=== PATIENT | female | born 1990 | race Caucasian/White ===

== ENCOUNTER → 2018-07-23 16:30 | Outpatient (CLI) | payer OTHER, SELFPAY ==
[2018-07-24 12:58] LABS: Chlamydia Trachomatis by PCR Negative (Negative)
[2018-07-24 12:59] LABS: Neisserai gonorrhoeae by PCR Negative (Negative); Probe Check PASS; Sample Adequacy Control PASS; Specimen Processing Control PASS
[2018-07-27 17:24] LABS: HPV Reflexed? NOT INDICATED
== END ==
PROVIDERS: Visit Provider Obstetrics & Gynecology
DX: Z12.4 Encounter for screening for malignant neoplasm of cervix (principal)
CPT/HCPCS: 87491; 87591; 87624; 88175; G0145

== ENCOUNTER 2021-04-29 08:55 | Day surgery (SDC) | payer OTHER, SELFPAY ==
--- NOTE | 2021-04-27 13:08 | EKG12_ITS ---
Test Reason : PRE-OP Blood Pressure : / mmHG Vent. Rate : 104 BPM Atrial Rate : 104 BPM P-R Int : 130 ms QRS Dur : 072 ms QT Int : 350 ms P-R-T Axes : 009 062 029 degrees QTc Int : 460 ms Sinus tachycardia Otherwise normal ECG Confirmed by SHAISTA APARICIO, MER ([id number]), editor greeting card LEANNA HICKS ([id number]) on 04/28/2021 9:38:03 AM Referred By: Louis Leal Confirmed By:MER NOONAN MD
[2021-04-29] VITALS (7 sets, daily range): BP systolic 95–110; BP diastolic 56–70; PULSE 55–76; RESP 16–18; TEMP 36.1–36.6; O2SAT 97–100; BMI 34.1
[2021-04-29 09:29] LABS: Internal QC Validated? YES +Cl - CLEAR BKGD; Pregnancy, Urine Negative Negative
[2021-04-29] MEDS: Lactated Ringers 1,000 ML 15 ML IV (09:37)
--- NOTE | 2021-04-29 09:54 | PCM.HP.BLA ---
History and Physical Date of Admission: 04/29/21 Intake Vital Signs 04/27/21 12:36 Height 5 ft 5 in Weight: 207 lb BMI 34.4 BP 104/72 Blood Pressure Location Rt brachial Position Sitting Respiration 18 Intake Visit Reasons: GALLBLADDER Chief Complaint: gallbladder [place] Mail [employer] Required: No Is patient in pain?: No Allergies No Known Allergies Allergy (Verified 04/27/21 12:35) Medications NK 04/26/21 [History Confirmed 04/27/21] PFSH Medical History Migraine headache Smoker Wears glasses Family History Father Diabetes Social History Smoking Status: Light Smoker (<10/day) alcohol intake: never HPI HPI HPI: ALINE CRAMER, 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 The has been having attacks in the right upper quadrant and midepigastric pain. Patient was in the emergency room and was noted to have cholelithiasis. Patient does not note any acute fevers or pain today. ROS General General: No weight change, appetite, fatigue, colon cancer, breast cancer or weakness HEENT HEENT: No difficulty swallowing, eye injury, eye surgery, swollen glands or hoarseness Endo Endocrine: No thyroid disease, diabetes mellitus, thyroid cancer, Hair loss, heat intolerance or cold intolerance Skin Skin: No rash or changing moles Breast Breast: No left breast lump, right breast lump, nipple discharge, breast pain, abnormal mammogram, abnormal US or breast enlargement Musc Musculoskeletal: No back problems, arthritis, rheumatoid arthritis, gout or joint pain Cardio Cardiovascular: No murmur, pacemaker, heart disease, atrial fibrillation, high blood pressure, heart attack, heart stent, palpitations, shortness of breat with exertion or chest pain Psych Psychiatric: No depression, anxiety or hearing voices Resp Respiratory: No shortness of breath, No sleep apnea, No cough, No COPD, No asthma, No emphysema and No wheezing Gastro Gastrointestinal: Yes abdominal pain, No nausea or vomiting, No diarrhea, No constipation, No blood in stool, No acid reflux, No hemorrhoids, No ulcers, Yes gallbladder problem and No black,tarry stools [place] Hematologic: No blood thinners, No blood disorders, No bleeding, No anemia and No blood clots Neuro Neurologic: No system reviewed and no additional complaints, except as documented, No as per HPI, No abnormal gait, No abnormal hearing, No abnormal movements, No abnormal speech, No behavioral changes, No burning sensations, No confusion, No convulsions, No disequilibrium, No dizziness, No localized weakness, No frequent falls, No headache(s), No lack of coordination, No loss of vision, No memory loss, No numbness, No other visual disturbances, No radicular pain, No restless legs, No sensory deficit, No syncope, No tingling, No tremor(s), No weakness and No other Exam Const General: cooperative Orientation: alert and oriented x3 HENMT Head: normal to inspection Neck Neck: normal visual inspection and full ROM Chest Chest palpation & inspection: normal inspection of the chest Resp Effort & Inspection: normal respiratory effort Auscultation: clear to auscultation bilaterally Cardio Rate: regular rate Rhythm: regular rhythm GI Inspection: non-distended Palpation: soft and tender in the RUQ Skin General: no rashes or lesions noted Neuro General: patient alert and patient oriented x3 Extrem General: full ROM Psych Appearance: grossly normal Mental Status: mental status grossly normal Assessment and Plan Assessment and Plan (1) Cholelithiasis: Status: Acute Qualifiers: Cholelithiasis location: gallbladder Cholecystitis presence: without cholecystitis Biliary obstruction: without biliary obstruction Qualified Code(s): K80.20 - Calculus of gallbladder without cholecystitis without obstruction Plan - Dr. Louis Leal MD: The patient reports having biliary colic symptoms and she had an outside ultrasound showed a large 2 cm gallstone in the gallbladder. I recommend laparoscopic cholecystectomy. I discussed the procedure in detail with the patient. I discussed the risks, benefits, and alternatives of the procedure. I discussed the risks including but not limited to bleeding, infection, injury to surrounding organs such as the liver, bile duct, bowels. I did discuss the possibility of having to convert to an open procedure as well as the possibility that if any injuries occurred this may necessitate further surgery at a tertiary care center. Louis Leal MD Pager: [facility] [address] [place] [address], [address] [place] [address] Office: I have re-examined the patient. There are no clinical changes since date of exam.
--- NOTE | 2021-04-29 10:00 | RAD_ITS ---
INDICATION: LAP RENZO WITH IOC EXAMINATION/TECHNIQUE: Limited spot intraoperative films are presented for evaluation. Total Fluoroscopic Time: 0:18 minutes/seconds. Number of Fluoroscopic Images: 3 Radiation dosage : 7.12 mGy COMPARISON: None. FINDINGS: Spot fluoroscopic images obtained demonstrate contrast injection there is contrast extravasation visualized in the right lower quadrant, no significant opacification of the biliary system is seen. RAD/Cholangiogram/ O R,Initial IMPRESSION: Contrast extravasation, no significant opacification of the biliary system is seen. Electronically Signed: Tin Willis MD at 12:18 EST Tel , Service support ,
[2021-04-29] MEDS: Cefotetan 2 GM in 0.9% NS 100 ML IV (10:35)
--- NOTE | 2021-04-29 11:00 | GALL_PTH ---
PATIENT: ALINE CRAMER LOC: [facility] – [place] U#:[id number] AGE/SX: 30/F ROOM: RE04/29/[address]: Dr. Louis Leal MD : 1990 BED: DIS: 04/29/2021 SPEC #: [id number] RECD: 05/03/21 09:29 STATUS: LAURA KANDI #: [id number] HOA: 04/29/21 11:[address]: Louis Leal DEPT: SURGICAL PATHOLOGY RECD BY: Margo Davis ENTERED: 05/03/21 09:30 SP TYPE: ARASH VAIL DR: CAITLIN Ralph Tissues: Gallbladder, NOS Procedures: Surgery Specimen Level III HEADER OPERATION: Laparoscopic cholecystectomy with IOC PRE-OP DIAGNOSIS: Cholelithiasis TISSUE SUBMITTED: Gallbladder MICROSCOPIC DIAGNOSIS Gallbladder, cholecystectomy: Chronic cholecystitis and cholelithiasis. SJ:latrice 05/04/2021 MICROSCOPIC DESCRIPTION Slides are reviewed. GROSS DESCRIPTION Received is one container labeled with the patient's name and designated gallbladder. The specimen consists of a gallbladder measuring 5.5 cm in length and up to 2.5 cm in diameter. The external surface is pink-faria, smooth and glistening for the most part. Focally it is granular, hemorrhagic and contains cautery artifact. The gallbladder contains green-yellow mucoid bile and multiple yellow, mulberry stones measuring in aggregate 3.5 x 3 x 0.5 cm and 0.1 to 0.2 cm in greatest dimension. The mucosa is bile-stained and without any mass lesions. The gallbladder wall measures up to 0.2 cm in thickness. Aboriginal Liaison Officer sections from the gallbladder and the cystic duct are submitted in one cassette. / SJ:latrice 05/03/21 TC:3 CPT: 97135
[2021-04-29] MEDS: Bupivacaine Mpf 0.5% 30 ML VIAL (11:25)
--- NOTE | 2021-04-29 11:46 | PCM.OPRPT ---
Problems Associated Problem List Diagnoses (1) Cholelithiasis: Report of Operation Date of Procedure: 04/29/21 Pre-Operative Diagnosis: Cholelithiasis Post-Operative Diagnosis: Same Surgery/Procedure Performed:: Laparoscopic cholecystectomy with cholangiogram Specimen's removed: Gallbladder Description of Procedure: After obtaining informed consent patient was brought back to the operating room. General anesthesia was induced. The abdomen was prepped and draped in usual sterile fashion. A small midline incision was made superior to the umbilicus and deepened to the level of fascia. The fascia was elevated and incised. Next the peritoneum was elevated and incised in the same fashion. Finger sweep was performed and the Mcclellan trocar was placed into the abdomen. The balloon was inflated. The abdomen was inflated to 15 mmHg. Next a camera was introduced into the abdomen and the abdomen was inspected. Next under direct visualization three 5-mm ports were placed one subxiphoid and 2 subcostal. Next the gallbladder was elevated and retracted toward the right shoulder. The peritoneum was stripped from the gallbladder. The infundibulum was located and retracted laterally. Next the triangle of Calot was dissected and the cystic duct and cystic artery were identified. Cholangiograms were performed. The Dewey clamp was used to clamp across the infundibulum and the catheter needle was inserted into the gallbladder. Under fluoroscopy contrast was instilled into the gallbladder and the common duct, cystic duct as well as proximal hepatic ducts were identified. There was good filling of the duodenum. There were no filling defects noted in the common bile duct. The clamp was removed as well as the needle and the infundibulum was grasped once more. Three hemolock clips were placed across the cystic duct. The cystic duct was then divided leaving 2 clips on the stump. The cystic artery was clipped and divided in the same fashion. The hook cautery was then used to take the gallbladder off of the gallbladder bed. Hemostasis was obtained. Gallbladder fossa was irrigated and no active bleeding or bile leakage was noted. Next the camera was introduced in the subxiphoid port. An Endopouch bag was placed through the umbilical port and the gallbladder was placed into it. The gallbladder was then removed through the umbilical incision. The camera was then reinserted through the umbilical port. The gallbladder fossa was inspected once more and noted to be hemostatic with no leaking bile. The abdomen was suctioned dry. The 5 mm ports were removed under direct visualization. The umbilical port was then removed and the air was removed from the abdomen. Next using an 0 Vicryl suture the umbilical fascia was closed in a [id number] fashion. The umbilical port site was irrigated local anesthetic was administered to all the incisions. All the incisions were closed with interrupted subcuticular 4-0 Monocryl sutures followed by Steri-Strips and dressings. The patient was awoken and taken to PACU in stable condition. Admit VTE Documentation VTE Mechan Device Prophylaxis: SCD's
--- NOTE | 2021-04-29 11:47 | EX.PCM.DISCH ---
Discharge Instructions Procedure Gallbladder Diet Discharge Diet: Light diet - advance as tolerated Activity Discharge Activity: May Not Drive (for 2-3 days or while taking narcotic pain medications.) and - (Do not drive, work heavy equipment or sign legal documents for 24 hours.) May shower in (days): 1 Lifting Restrictions: 20 lbs for 2 weeks Additional Activity Instructions:: Pain medication may cause nausea. You should typically eat light foods as you take your pain medications. Pain medication may also cause constipation. If this is a problem for you, please discuss with your doctor. Dressing / Incision Call your doctor if your incision/area has: Continuous Slow Oozing, Sudden Increased Bleeding, Increased Pain/ Swelling, Increased Redness and Foul Smelling Discharge Call your doctor if you observe: Fever of 101 or Higher Suture Line Care: Avoid Pulling/Pushing and Avoid Pinching/Bending Remove Dressing in: 2 days Additional Dressing/Incision Instructions:: Leave operative bandaids on for 2 days. When you remove dressing, leave Steri-Strips on until your follow-up appointment, or until the Steri-Strips fall off on their own. Follow Up Care Please Follow Up With: Louis Leal MD When: Please call to schedule 2 week follow up appointment. [phone] Test Results: Test results from this visit will be discussed in further detail at your follow-up appointment, if applicable. Discharge Plan Admission Attending Provider: Louis Leal Primary Care Provider: Monika Arvizu Discharge Orders/Prescriptions Prescriptions: New oxycodone-acetaminophen [Percocet] 5-325 mg tablet 1 tab PO Q4H PRN (Reason: pain) 5 Days Qty: 20 RF: 0 Other Ambulatory Orders: 12 Lead EKG (Routine) Timeframe: [id number] Location: None Selected Ordered By: Dr. Maico Cisneros Referrals / Follow Up: Monika Arvizu PA [Primary Care Provider] - Disposition Disposition (needs filled in before D/C Order can be placed): Home, Self Care
== END 2021-04-29 15:20 | disposition home or self-care (01) ==
LOC: SDC 08:59 → AC 08:59
PROVIDERS: Anesthesiology; Referring Provider Surgery; Visit Provider Surgery
PROC: (CPT 47610; principal; 2021-04-29 10:40)
DX: K80.10 Calculus of gallbladder with chronic cholecystitis without obstruction (principal); F17.200 Nicotine dependence, unspecified, uncomplicated
CPT/HCPCS: 47563; 74300; 76000; 81025; 87426; 87635; 88304; 93005; C9803; J7120; U0005; J2405; U0003